=== PATIENT | female | born 1955 ===

== ENCOUNTER 2020-10-10 18:19 | Emergency (ER) | payer SELFPAY ==
[~2020-10-10] VITALS: Ht 157.5 cm; Wt 50.0 kg
--- NOTE | 2020-10-10 18:25 | NUR ---
PT BROUGHT IN BY [facility] FROM [facility] AFTER GLF, PT ADMITS TO ETOH. LAC ABOVE RIGHT EYE, BLEEDING CONTROLLED.
[2020-10-10 19:00] VITALS: BP 134/76
--- NOTE | 2020-10-10 19:00 | NUR ---
PT TAKEN TO CT IN STABLE CONDITION. NADN. VSS PRIOR TO LEAVING FOR IMAGING.
--- NOTE | 2020-10-10 19:04 | NUR ---
PT AMBULATORY TO NURSES STATION VERBALIZING, I'M LEAVING, I'M OUT OF HERE. PT REFUSING RN ATTEMPTS TO GET HER TO WAIT. FRIENDS WITH HER ALSO VERBALIZING "WERE OUT OF HERE"
== END 2020-10-10 19:06 | disposition left against medical advice (07) ==
LOC: ED 19:00
DX: S01.81XA Laceration without foreign body of other part of head, initial encounter (principal); S09.90XA Unspecified injury of head, initial encounter; Z85.118 Personal history of other malignant neoplasm of bronchus and lung; W18.30XA Fall on same level, unspecified, initial encounter; Y93.89 Activity, other specified; Y92.410 Unspecified street and highway as the place of occurrence of the external cause; Y99.8 Other external cause status
CPT/HCPCS: 99281